=== PATIENT | male | born 1965 | race Caucasian/White ===

== ENCOUNTER 2018-04-08 13:47 | Emergency (ER) | payer SELFPAY ==
[~2018-04-08] VITALS: Ht 175.3 cm; Wt 100.2 kg
[2018-04-08 14:16] VITALS: BP 150/84
--- NOTE | 2018-04-08 15:30 | NUR ---
PT RE-EVALUATED; VSS, AMB TO LOBBY
--- NOTE | 2018-04-08 16:49 | NUR ---
1649---PATIENT LEFT WITHOUT BEING SEEN BY DR. LANZA. NO FURTHER CARE PROVIDED FOR PATIENT. 1655---2ND CALL NO ANSWER. 170---3RD CALL NO ANSWER.
== END 2018-04-08 16:49 | disposition left against medical advice (07) ==
LOC: MED 13:47
DX: R05 Cough (principal); M25.552 Pain in left hip; Z53.21 Procedure and treatment not carried out due to patient leaving prior to being seen by health care provider

== ENCOUNTER 2018-10-10 12:36 | Emergency (ER) | payer OTHER ==
[~2018-10-10] VITALS: Ht 177.8 cm; Wt 95.3 kg
[2018-10-10 12:55] VITALS: BP 144/93
[2018-10-10] MEDS ORDERED: AMLO5TAB PO (12:59)
--- NOTE | 2018-10-10 13:52 | NUR ---
PT AMBULATED TO BED 08.
--- NOTE | 2018-10-10 13:55 | NUR ---
C/O DIZZINESS, CHEST DISCOMFORT, NUMBNESS FINGERS AND TOES SINCE THIS MORNING, HX OF HTN. TX WITH AMLODEPINE, MISSING DOSES X2 DAYS.
[2018-10-10 14:59] LABS: BASOPHILS % (AUTO) 0.3 % (0.0-2.0); EOSINOPHILS % (AUTO) 1.2 % (0.0-4.0); HEMATOCRIT 41.2 % (36-52); HEMOGLOBIN 13.6 g/dL (12.0-18.0); LYMPHOCYTES # (AUTO) 1.2 K/uL (2.0-11.5); LYMPHOCYTES % (AUTO) 31.5 % (20.5-51.1); MEAN CORPUSCULAR HEMOGLOBIN 30 pg (27-31); MEAN CORPUSCULAR HGB CONC 33 g/dL (33-37); MEAN CORPUSCULAR VOLUME 89.8 fL (80-94); MONOCYTES # (AUTO) 0.4 K/uL (0.8-1.0); NEUTROPHILS # (AUTO) 2.1 K/uL (1.8-7.7); PLATELET COUNT (AUTO) 206 K/uL (140-450); RED BLOOD CELL COUNT(AUTO) 4.58 MIL/uL (4.20-6.10); RED CELL DISTRIBUTION WIDTH 14.4 % (11.6-13.7); WHITE BLOOD COUNT (AUTO) 3.8 K/uL (4.8-10.8)
[2018-10-10 15:08] LABS: ANION GAP 10.7 (8-16); CARBON DIOXIDE 31.3 mmol/L (21-32); CREATININE 1.3 mg/dL (0.7-1.3)
[2018-10-10 15:13] LABS: ALBUMIN 3.5 g/dL (3.4-5.0); TOTAL BILIRUBIN 0.3 mg/dL (0.0-1.0)
[2018-10-10] MEDS ORDERED: MECLIZINE 25 MG TAB PO ONE (15:20)
[2018-10-10 15:43] VITALS: BP 138/88
--- NOTE | 2018-10-10 15:43 | NUR ---
Patient discharged with v/s stable. Written and verbal after care instructions given and explained. Patient alert, oriented and verbalized understanding of instructions. Ambulatory with steady gait. All questions addressed prior to discharge. ID band removed. Patient advised to follow up with PMD. Rx of Meclizine, Valium given. Patient educated on indication of medication including possible reaction and side effects. Opportunity to ask questions provided and answered.
== END 2018-10-10 15:43 | disposition home or self-care (01) ==
LOC: MED 12:36
DX: R42 Dizziness and giddiness (principal); R07.89 Other chest pain; I10 Essential (primary) hypertension; Z85.46 Personal history of malignant neoplasm of prostate; Z98.890 Other specified postprocedural states; Z79.899 Other long term (current) drug therapy
CPT/HCPCS: 36415; 80053; 84484; 85025; 93005; 99284; J8597

== ENCOUNTER 2018-10-12 14:41 | Emergency (ER) | payer OTHER ==
[~2018-10-12] VITALS: Ht 177.8 cm; Wt 95.3 kg
[~2018-10-12 14:41] MED LIST: AMLO5TAB PO
[2018-10-12 14:48] VITALS: BP 171/91
[2018-10-12 19:15] VITALS: BP 145/85
== END 2018-10-12 19:15 | disposition home or self-care (01) ==
LOC: MED 14:41
DX: Z02.1 Encounter for pre-employment examination (principal); I10 Essential (primary) hypertension; Z85.46 Personal history of malignant neoplasm of prostate; Z79.899 Other long term (current) drug therapy
CPT/HCPCS: 99283